=== PATIENT | female | born 1945 | race Caucasian/White ===

== ENCOUNTER 2017-11-17 09:54 | Inpatient (IN) | payer OTHER ==
[~2017-11-17] VITALS: Ht 149.9 cm; Wt 86.2 kg
--- NOTE | ~2017-11-17 | EKG ---
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 : 1945 Requested By: Naomi Yen Order Number: [id number] MD: Ollie Gilliam Measurements Intervals [place] Rate: 104 P: 28 NM: 178 QRS: 26 QRSD: 114 T: 3 QT: 330 QTc: 434 Interpretive Statements Sinus tachycardia Otherwise no significant abnormality Compared to ECG 11/17/2017 10:08:40 heart rate has increased Electronically Signed On 11-19-2017 8:42:13 CURRICULUM WRITER by Ollie Gilliam [email or web address] <ELECTRONICALLY SIGNED> By: Ollie Gilliam MD, [facility] 11/19/17 0842 [id number] 174 Ollie Gilliam MD, [facility] /EPI
--- NOTE | ~2017-11-17 | D ---
[facility] [place] [address] DISCHARGE SUMMARY Name: BRIDGETTE HARRISON Room #: 441-P [facility] IN M.R.#: [id number] Admission: 11/17/17 Attend Phys: Naomi Yen MD Discharge: 11/19/17 Date of : 41 Report #: [id number] THIS REPORT FOR: //name// CC: Naomi Yen DATE OF SERVICE: 11/19/2017 HOSPITAL COURSE: The patient is a 72-year-old white female who was admitted through the Emergency Room on 11/19 with severe thoracic back and chest pain that was worse with movement. She is diabetic and felt to be at high risk for this to be possible coronary or aortic emergent problem. Cardiac enzymes were negative in the Emergency Room. CT scan of the chest was negative for aortic dissection. She was admitted for further evaluation after those tests were done in the Emergency Room. PHYSICAL EXAMINATION: GENERAL: She was in acute distress with pain. Otherwise pertinent physical exam findings were tender to palpation between her scapula. HEART: Regular rate and rhythm without murmur. ABDOMEN: Soft, nontender. LUNGS: Clear. 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 She did not have improvement with GI cocktail or a proton pump inhibitor infusion. She did get some relief with diazepam. A 2 stage nuclear stress test was accomplished, which was negative for ischemic changes on the , so with her pain significantly improved at this point, she was discharged to home. The pain was still there, but significantly improved, so likely this was a musculoskeletal type of chest pain. DISCHARGE DIAGNOSES: Thoracic pain. Chest pain, improved. Type 2 diabetes, asthma, hypertension. She will follow up with Dr. Yen in 1-2 weeks. MEDICATIONS: Metformin 1000 b.i.d., cortisone 30 mg a day, lisinopril 20 mg a day, aspirin 81 a day, allopurinol 300 a day, HCTZ 25 a day, simvastatin 40 mg a day, nabumetone 750 mg b.i.d., Diazepam 5 mg b.i.d. p.r.n. <ELECTRONICALLY SIGNED> By: Naomi Yen MD 12/10/17 1501 [id number] Naomi Yen MD /nt
--- NOTE | ~2017-11-17 | EKG ---
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: [facility] [facility] : 1945 Requested By: Dione Pozo Order Number: [id number] MD: Cortez Jackson Measurements Intervals [place] Rate: 98 P: 37 RI: 185 QRS: 16 QRSD: 86 T: 6 QT: 331 QTc: 423 Interpretive Statements Sinus rhythm Abnormal R-wave progression, early transition No previous ECG available for comparison Electronically Signed On 11-17-2017 15:43:30 EMERGENCY ROOM PHYSICIAN by Cortez Jackson [email or web address] <ELECTRONICALLY SIGNED> By: Cortez Jackson MD 11/17/17 1543 1008 07 Cortez Jackson MD /PEDRO
[2017-11-17 10:25] VITALS: BP 141/65
[2017-11-17 10:48] LABS: ABSOLUTE NEUTROPHILS 9.6 thou/uL (1.4-8.2); BASOPHILS 0.5 % (0.0-2.0); EOSINOPHILS 1.6 % (0.0-3.0); HEMATOCRIT 32.6 % (37.0-47.0); HEMOGLOBIN 10.6 gm/dL (12.0-15.0); LYMPHOCYTES 13.5 % (24.0-44.0); MCH 31.3 pg (26.0-34.0); MCHC 32.5 g/dL (28.0-37.0); MCV 96.1 fL (80.0-100.0); MONOCYTES 9.3 % (1.0-8.0); PLATELET COUNT 339 thou/uL (150-400); POLYS 75.1 % (36.0-66.0); RBC 3.39 mil/uL (4.20-5.00); RDW 14.7 % (10.5-14.5); WBC 12.8 thou/uL (4.0-11.0)
[2017-11-17 11:00] LABS: ANION GAP 11 mmol/L (7-16); BUN 33 mg/dL (7-18); CALCIUM 9.8 mg/dL (8.5-10.1); CHLORIDE 104 mmol/L (98-107); CO2 26 mmol/L (21-32); CREATININE 1.3 mg/dL (0.6-1.0); GLUCOSE 146 mg/dL (74-106); POTASSIUM 4.5 mmol/L (3.5-5.1); SODIUM 141 mmol/L (136-145)
[2017-11-17 11:10] LABS: ALBUMIN 3.6 g/dL (3.4-5.0); SGOT 21 U/L (15-37); SGPT 30 U/L (30-65); TOTAL BILIRUBIN 0.6 mg/dL (<0.1-1.0); TOTAL PROTEIN 7.6 g/dL (6.4-8.2); TROPONIN-I < 0.04 ng/mL (<0.06)
[2017-11-17] MEDS ORDERED: LISINOPRIL-HCT1 EAC2 PO (13:35)
[2017-11-17] MEDS ORDERED: SIMVASTATIN40 MG PO (13:35)
[2017-11-17] MEDS ORDERED: METFORMIN HCL1000 MG PO (13:35)
[2017-11-17] MEDS ORDERED: ALLOPURINOL 30300 M1 PO (13:36)
[2017-11-17] MEDS ORDERED: ACTOS 30 MG TAB30 M2 PO (13:36)
[2017-11-17] MEDS ORDERED: ASPIR 8181 MG PO (13:37)
[2017-11-17] MEDS ORDERED: NABUMETONE 500500 M1 PO (13:38)
[2017-11-17 14:32] VITALS: BP 131/82
[2017-11-17 15:07] VITALS: BP 128/73
[2017-11-17 15:15] VITALS: BP 144/64
[2017-11-17] MEDS ORDERED: NABUMETONE 750750 M1 PO (16:00)
[2017-11-17 20:09] VITALS: BP 140/58
[2017-11-18 04:51] VITALS: BP 139/53
[2017-11-18 07:28] VITALS: BP 137/66
[2017-11-18 16:50] VITALS: BP 128/82
[2017-11-18 20:11] VITALS: BP 134/71
[2017-11-19 02:56] VITALS: BP 121/58
[2017-11-19] MEDS ORDERED: VALIUM5 MG PO (07:32)
[2017-11-19 09:51] VITALS: BP 148/74
[2017-11-19 15:17] VITALS: BP 148/74
== END 2017-11-19 18:34 | disposition home or self-care (01) | DRG 552 ==
LOC: ER 09:54 → EROBS 13:47 → 4S 13:47 → ENTRNSPT 11-19 16:28 → 4S 11-19 18:34
PROVIDERS: Physician Assistant
DX: M54.6 Pain in thoracic spine (principal); N17.9 Acute kidney failure, unspecified; R07.89 Other chest pain; I10 Essential (primary) hypertension; E11.9 Type 2 diabetes mellitus without complications; E78.00 Pure hypercholesterolemia, unspecified; J45.909 Unspecified asthma, uncomplicated; M19.90 Unspecified osteoarthritis, unspecified site; Z98.42 Cataract extraction status, left eye; Z98.41 Cataract extraction status, right eye; Z90.12 Acquired absence of left breast and nipple; Z90.49 Acquired absence of other specified parts of digestive tract; Z79.82 Long term (current) use of aspirin; Z79.84 Long term (current) use of oral hypoglycemic drugs; Z79.899 Other long term (current) drug therapy
CPT/HCPCS: 10100